=== PATIENT | male | born 1995 | race Caucasian/White ===

== ENCOUNTER 2025-02-28 10:27 | Outpatient (CLI) | payer MEDICAID, SELFPAY ==
--- NOTE | 2025-02-28 11:00 | US_ITS ---
FINAL REPORT CLINICAL HISTORY: Decreased Pedal Pulses,DM,HLD FINDINGS: ANKLE-BRACHIAL PRESSURE INDICES Pressure indices are as follows: RIGHT LOWER EXTREMITY: Ankle-brachial pressure index: 1.04 Comments: Normal LEFT LOWER EXTREMITY: Ankle-brachial pressure index: 1.09 Comments: Normal IMPRESSION: No evidence of significant obstructive peripheral vascular disease of the lower extremities Reviewed, Interpreted and Dictated by Greta Washington MD Transcribed by Alexus Gavin Authenticated and [facility]
== END 2025-02-28 23:59 | disposition home or self-care (01) ==
LOC: RT 10:28
PROVIDERS: PCP Nurse Practitioner; Visit Provider Nurse Practitioner
DX: E11.9 Type 2 diabetes mellitus without complications (principal); I10 Essential (primary) hypertension; R09.89 Other specified symptoms and signs involving the circulatory and respiratory systems; R20.8 Other disturbances of skin sensation
CPT/HCPCS: 93923

== ENCOUNTER 2025-03-02 15:00 | Outpatient (RCR) | payer MEDICAID, SELFPAY | END 2025-03-02 23:59 | disposition home or self-care (01) | LOC: PT.CARL 15:00 | PROVIDERS: Visit Provider Nurse Practitioner | DX: M54.2 Cervicalgia (principal) | CPT/HCPCS: 97110; 97161 ==

== ENCOUNTER 2025-03-22 10:00 | Outpatient (RCR) | payer MEDICAID, SELFPAY | END 2025-03-22 23:59 | disposition home or self-care (01) | LOC: PT.CARL 10:00 | PROVIDERS: Visit Provider Nurse Practitioner | DX: M54.2 Cervicalgia (principal) | CPT/HCPCS: 97110; 97140; 97164 ==

== ENCOUNTER 2025-04-19 10:00 | Outpatient (RCR) | payer MEDICAID, SELFPAY | END 2025-04-26 14:36 | disposition home or self-care (01) | LOC: PT.CARL 10:00 | PROVIDERS: Visit Provider Nurse Practitioner | DX: M54.2 Cervicalgia (principal) | CPT/HCPCS: 97110; 97140 ==